=== PATIENT | male | born 1985 | race Caucasian/White ===

== ENCOUNTER 2020-06-20 17:18 | Emergency (ER) | payer OTHER, SELFPAY ==
[~2020-06-20] VITALS: Ht 172.7 cm; Wt 104.8 kg
--- NOTE | 2020-06-20 18:02 | NUR ---
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
--- NOTE | 2020-06-20 18:22 | NUR ---
FIRST ENCOUNTER WITH PT, PT REPORTS JAW PAIN ON RIGHT SIDE X2 WEEKS, SOB AND AND OFF TODAY, DENIES CHEST PAIN. EVEN AND UNLABORED RESPIRATIONS O2 SAT 99% RA.
[2020-06-20] MEDS ORDERED: ASPIRIN 81 MG TABLET CHEW PO ONE (18:30)
[2020-06-20] MEDS ORDERED: ASPIRIN 81 MG TABLET CHEW ONE (18:34)
[2020-06-20 18:38] LABS: BASOPHILS % (AUTO) 1 % (0-1); EOSINOPHILS % (AUTO) 2 % (1-7); LYMPHOCYTES % (AUTO) 41 % (22-44); MEAN CORPUSCULAR HEMOGLOBIN 31.7 pg (27.5-34.5); MEAN CORPUSCULAR HGB CONC 34.7 g/dL (33.2-36.2); MEAN PLATELET VOLUME 9.5 fL (7.4-10.4); MONOCYTES % (AUTO) 7 % (2-9); NEUTROPHILS % (AUTO) 49 % (42-75); PLATELET COUNT 246 x10^3/uL (130-400); RED BLOOD COUNT 4.63 x10^6/uL (4.38-5.82); RED CELL DISTRIBUTION WIDTH 12.8 % (9.4-14.8)
[2020-06-20 18:42] LABS: MD NO
[2020-06-20 18:43] LABS: ANION GAP 5 mmol/L (5-15); CHLORIDE 112 mmol/L (98-107)
[2020-06-20 18:47] LABS: TROPONIN I < 0.015 ng/mL (0.000-0.045)
[2020-06-20 19:18] VITALS: BP 139/75
== END 2020-06-20 19:19 ==
LOC: ED 18:17
DX: M94.0 Chondrocostal junction syndrome [Tietze] (principal); K02.9 Dental caries, unspecified; R07.89 Other chest pain; R06.00 Dyspnea, unspecified; F17.200 Nicotine dependence, unspecified, uncomplicated
CPT/HCPCS: 36415; 71045; 80048; 82040; 84484; 85025; 93005; 99285